=== PATIENT | male | born 1995 | race American Indian/Alaskan Native ===

== ENCOUNTER 2019-02-22 20:24 | Emergency (ER) | payer MEDICARE, MEDICAID ==
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
[2019-02-23 20:00] VITALS: BP 138/94
== END 2019-02-23 20:09 | disposition other institution (70) ==
LOC: ED 20:24 → EEVIPCON 20:24 → ED 02-23 20:09
DX: F84.5 Asperger's syndrome (principal); Z79.899 Other long term (current) drug therapy